=== PATIENT | female | born 1935 | race Caucasian/White ===

== ENCOUNTER 2017-07-21 11:45 | Observation (INO) | payer OTHER, MEDICARE ==
[~2017-07-21] VITALS: Ht 157.5 cm; Wt 61.8 kg
[~2017-07-21 11:45] MED LIST: ALTACE10 MG PO; ATENOLOL PO; ATENOLOL25 MG PO; ATENOLOL50 MG PO; CALCIUM 500 MG1 EACH PO; CALCIUM PO; CALCIUM500 M4 PO; CLOBETASOL PROP60 GM TP; Catapres PO; ECOTRIN325 MG PO; Ecotrin PO; Feosol PO; Hydrodiuril,Oretic,E PO; LO-DOSE ASPIRIN81 M2 PO; LOSARTAN POTAS100 MG PO; LOSARTAN POTASS50 MG PO; NORVASC5 MG PO; Omnicef PO; Oscal 500 w/Vitamin PO; PEPCID AC10 MG PO; PROBIOTIC PO; PROBIOTIC1 EAC1 PO; Pepcid PO; RAMIPRIL; SYSTANE 0.3-0.1 EACH BOTH EYES; TYLENOL REGULA325 MG PO; Xanax PO; Zithromax PO
[2017-07-21] MEDS ORDERED: CULTURELLE1 EAC1 PO (15:08)
[2017-07-21] MEDS ORDERED: TUMS500 MG PO (15:10)
[2017-07-21] MEDS ORDERED: SYSTANE ULTRA 015 ML BOTH EYES (15:10)
[2017-07-21] MEDS ORDERED: OCEAN NASAL 0.645 ML BOTH NARES (15:10)
[2017-07-21] MEDS ORDERED: BENADRYL25 MG PO (15:11)
[2017-07-21 15:24] LABS: MCH 31.4 PG (29.0-34.0); MCHC 34.6 G/DL (30.0-36.0); MCV 90.9 FL (83-99); RBC DIS.WIDTH-CV 12.3 % (11.8-14.6); RBC DIS.WIDTH-SD 40.9 % (39-53); RED BLOOD COUNT 3.85 M/uL (3.80-5.20); WHITE BLOOD COUNT 13.5 K/uL (4.1-10.2)
[2017-07-21 15:37] LABS: CHLORIDE 100 mEq/L (99-109); POTASSIUM 3.8 mEq/L (3.7-5.4); SODIUM 133 mEq/L (136-147)
[2017-07-21 15:38] LABS: MAGNESIUM 1.9 mg/dL (1.3-2.7)
[2017-07-21 15:39] LABS: GLUCOSE 114 mg/dL (70-99)
[2017-07-21 15:41] LABS: ANION GAP 10 MEQ/L (2-14)
[2017-07-21 15:43] LABS: GFR ESTIMATE (CALCULATED) > 59 mL/min/
[2017-07-21 15:44] LABS: UREA NITROGEN (BUN) 14 mg/dL (9-23)
[2017-07-21 16:09] LABS: PLATELET CLUMPS RARE
[2017-07-21 16:16] VITALS: BP 155/68
[2017-07-21 20:09] VITALS: BP 152/66
[2017-07-21 23:17] VITALS: BP 165/72
[2017-07-22 03:44] VITALS: BP 133/61
[2017-07-22 07:01] LABS: HEMATOCRIT 32.4 % (36.0-46.0); MCH 31.7 PG (29.0-34.0); MCV 93.4 FL (83-99); RBC DIS.WIDTH-CV 12.9 % (11.8-14.6); RBC DIS.WIDTH-SD 44.2 % (39-53); RED BLOOD COUNT 3.47 M/uL (3.80-5.20); WHITE BLOOD COUNT 8.9 K/uL (4.1-10.2)
[2017-07-22 07:21] LABS: ANION GAP 6 MEQ/L (2-14); CHLORIDE 102 MEQ/L (99-109); GFR ESTIMATE (CALCULATED) > 59 mL/min/; GLUCOSE 103 mg/dL (70-99); POTASSIUM 4.2 MEQ/L (3.7-5.4); SAMPLE HEMOLYSIS CHECK 0; SAMPLE ICTERIC CHECK 0; SAMPLE LIPEMIA CHECK 0; SODIUM 136 MEQ/L (136-147); UREA NITROGEN (BUN) 13 mg/dL (9-23)
[2017-07-22 07:31] LABS: MEAN PLAT.VOLUME 12.6 uM^3 (9.5-12.4); PLAT.SUFFICIENCY ADEQUATE; PLATELET COUNT 207 K/uL (156-360)
[2017-07-22 08:27] VITALS: BP 154/69
[2017-07-22 10:36] VITALS: BP 163/71
[2017-07-22 10:37] VITALS: BP 149/66; BP 165/69
[2017-07-22 11:45] VITALS: BP 135/61
== END 2017-07-22 16:54 | disposition home health service (06) ==
LOC: EME 11:45 → 3EAST 14:41 → EDOF 14:41 → ENRESERV 14:42 → 3EAST 15:59
PROVIDERS: Internal Medicine
DX: S42.211A Unspecified displaced fracture of surgical neck of right humerus, initial encounter for closed fracture (principal); S92.341A Displaced fracture of fourth metatarsal bone, right foot, initial encounter for closed fracture; S92.351A Displaced fracture of fifth metatarsal bone, right foot, initial encounter for closed fracture; S00.91XA Abrasion of unspecified part of head, initial encounter; R42 Dizziness and giddiness; R61 Generalized hyperhidrosis; I10 Essential (primary) hypertension; E78.5 Hyperlipidemia, unspecified; Z86.73 Personal history of transient ischemic attack (TIA), and cerebral infarction without residual deficits; E87.1 Hypo-osmolality and hyponatremia; D72.829 Elevated white blood cell count, unspecified; Z87.891 Personal history of nicotine dependence; Z90.710 Acquired absence of both cervix and uterus; Z88.8 Allergy status to other drugs, medicaments and biological substances; W17.89XA Other fall from one level to another, initial encounter; Y93.A1 Activity, exercise machines primarily for cardiorespiratory conditioning; Y92.018 Other place in single-family (private) house as the place of occurrence of the external cause; Z79.82 Long term (current) use of aspirin
CPT/HCPCS: 70450; 71010; 73030; 73060; 73610; 73630; 80048; 81003; 83735; 85027; 87086; 99281; 99284; G0378; G8978 GP CJ; G8979 GP CI; J1650; J2270